=== PATIENT | female | born 1950 | race Caucasian/White ===

== ENCOUNTER → 2018-01-22 12:08 | Outpatient (CLI) | payer MEDICARE, SELFPAY ==
--- NOTE | 2018-01-22 12:16 | XR_ITS ---
EXAM: XR lumbar spine min 4V HISTORY: ITS.REASON: LT LUMBAR RADICULOPATHY ORDERING PHYSICIAN: Rikki Leong MD PATIENT AGE: 67 years COMPARISON: 04/09/2009 FINDINGS: There is normal alignment. No fracture or dislocation is evident. Minimal endplate hypertrophic changes present at L2-3 and L4 superiorly. Mild facet arthritic changes L5-S1. There are bilateral renal calculi. At least 2 stones in the lower pole on the right and 2 stones in the mid and lower pole on the left. These are approximately 3 mm on the right and 2 mm on the left. There is generalized vascular calcification. IMPRESSION: 1. Mild degenerative disc disease and facet arthritic change. 2. Bilateral nephrolithiasis
== END ==
PROVIDERS: PCP Family Medicine; Visit Provider Family Medicine
DX: M54.16 Radiculopathy, lumbar region (principal)
CPT/HCPCS: 72110

== ENCOUNTER → 2021-09-13 10:14 | Outpatient (POV) | payer MEDICARE, SELFPAY | PROVIDERS: Visit Provider Dermatology | DX: Z00.00 Encounter for general adult medical examination without abnormal findings (principal) ==